=== PATIENT | female | born 1970 | race Caucasian/White ===

== ENCOUNTER 2021-03-28 18:26 | Inpatient (IN) | payer SELFPAY ==
[2021-03-28] MEDS ORDERED: THIAMINE 200 MG/2 ML INJ ONE (18:50)
[2021-03-28] MEDS ORDERED: NA CHLORIDE 0.9% 1,000 ML ONE (18:50)
[2021-03-28] MEDS ORDERED: MULTIVITAMINS 10 ML VIAL (INJ) IV ONE (18:51)
[2021-03-28] MEDS ORDERED: FOLIC ACID 5 MG/ML VIAL ONE (18:52)
[2021-03-28] MEDS ORDERED: DIAZEPAM 10 MG/2 ML INJ SYRINGE ONE (19:06)
[2021-03-28 19:16] LABS: Absolute Lymphocytes (CBC) 1.2 K/uL (0.7-4.9); Hematocrit 38.1 % (36.0-45.0); Lymphocytes % 32.5 % (15.3-44.8); MPV 10.1 fL (7.6-11.3); RBC Red Blood Cell Count 3.82 M/uL (3.86-4.86)
[2021-03-28 19:45] LABS: ALT/SGPT 98 U/L (12-78); Albumin 2.4 g/dL (3.4-5.0); Alkaline Phosphatase 237 U/L (45-117); BUN Blood Urea Nitrogen 3 mg/dL (7-18); Bicarbonate 26 mmol/L (21-32); Bilirubin Total 2.1 mg/dL (0.2-1.0); Glucose Level 94 mg/dL (74-106); Lipase 60 U/L (73-393); Protein, Total 6.3 g/dL (6.4-8.2); Sodium Level 137 mmol/L (136-145)
--- NOTE | 2021-03-28 19:52 | RAD REPORT ---
EXAM DESCRIPTION: Starla Single View03/28/2021 7:43 pm CLINICAL HISTORY: Alteration of consciousness COMPARISON: none FINDINGS: The lungs appear clear of acute infiltrate. The heart is normal size IMPRESSION: No acute abnormalities displayed
[2021-03-28 19:56] LABS: Urine Blood Trace-intact (Negative); Urine Glucose Negative (Negative); Urine Protein Negative (Negative)
[2021-03-28 19:57] LABS: AST/SGOT 321 U/L (15-37)
[2021-03-28 20:19] LABS: Anisocytosis 1+; Blood Morphology Comment NOTED (NOT SEEN); Platelet Estimate DECR; Polychromasia SLIGHT; White Blood Cell Scan OK (OK)
[2021-03-28 20:19] LABS: Protime INR 1.02
[2021-03-28 20:19] LABS: Troponin (Emerg Dept Use Only) 0.05 ng/mL (0.0-0.045)
[2021-03-28 20:23] LABS: Barbiturates NEGATIVE (NEGATIVE); Benzodiazepines NEGATIVE (NEGATIVE); Cocaine NEGATIVE (NEGATIVE); METHAMPHETAM NEGATIVE (NEGATIVE); Methadone NEGATIVE (NEGATIVE); Opiates NEGATIVE (NEGATIVE); Phencyclidine NEGATIVE (NEGATIVE); THC Cannibis NEGATIVE (NEGATIVE)
--- NOTE | 2021-03-28 20:59 | RAD REPORT ---
EXAM DESCRIPTION: CT - Head Brain Wo Cont - 03/28/2021 8:50 pm CLINICAL HISTORY: Alteration of awareness/confusion COMPARISON: None TECHNIQUE: Computed axial tomography of the head was obtained. IV contrast was not requested. All CT scans are performed using dose optimization technique as appropriate and may include automated exposure control or mA/KV adjustment according to patient size. FINDINGS: An intracranial bleed is not seen . The ventricles are mildly to moderately prominent. Cerebral atrophy is noted. No extra-axial fluid collection is noted. Fluid within the sinuses/ mastoids is not seen. IMPRESSION: Prominence of the ventricles probably related to white matter atrophy. Normal pressures hydrocephalus is probably less likely but should be correlated clinically.
--- NOTE | 2021-03-28 21:12 | RAD REPORT ---
EXAM DESCRIPTION: CT - Abdomen Pelvis W Contrast - 03/28/2021 8:57 pm CLINICAL HISTORY: Abdominal pain COMPARISON: none. TECHNIQUE: Computed axial tomography of the abdomen pelvis was obtained. 100 cc Isovue-300 was admin istered intravenously. Oral contrast was not requested which limits evaluation of bowel. All CT scans are performed using dose optimization technique as appropriate and may include automated exposure control or mA/KV adjustment according to patient size. FINDINGS: The liver is enlarged with fatty infiltration. The spleen, pancreas, adrenals and kidneys appear unremarkable There is no evidence of diverticulitis. An abnormal appendix is not seen. No adnexal mass. Agarwal catheter within the bladder. Prominence of the common bile duct. IMPRESSION: Hepatomegaly with fatty infiltration Prominence of the common bile duct probably is physiologic in this patient status post cholecystectom y. Pathology such as a stricture can also result in this appearance should be correlated clinically a nd with appropriate lab values
--- NOTE | 2021-03-28 21:41 | ER ---
Nurse's Notes [facility] Name: Rosa Cotto Age: 50 yrs Sex: Female : 1970 Arrival Date: 03/28/2021 Time: 18:28 Bed 26 Private MD: Diagnosis: Alcohol dependence with withdrawal;Elevated Troponin Level Presentation: 03/28 18:29 Chief complaint: EMS states: Toned out by Walterlakarthikeyan for alcohol withdrawal, pt drinks ll3 12 small bottles of wine per day, last drink last night on the way to rehab. Pt hallucinating in route, "trying to drink the pulse ox.". Coronavirus screen: Vaccine status: Patient reports receiving the 2nd dose of the covid vaccine. At this time, unable to obtain information related to travel outside the [place] At this time, the client does not indicate any symptoms associated with coronavirus-19. Ebola Screen: No symptoms or risks identified at this time. Initial Sepsis Screen: Does the patient meet any 2 criteria? No. Patient's initial sepsis screen is negative. Does the patient have a suspected source of infection? No. Patient's initial sepsis screen is negative. Risk Assessment: Do you want to hurt yourself or someone else? Patient reports no desire to harm self or others. Onset of symptoms was March 28, 2021. 18:29 Method Of Arrival: Ambulatory ll3 18:29 Acuity: MEDINA 2 ll3 Triage Assessment: 18:35 General: Appears in no apparent distress. comfortable, Behavior is calm, cooperative. ll3 Pain: Complains of pain in left upper quadrant Pain does not radiate. Pain currently is 6 out of 10 on a pain scale. Quality of pain is described as stabbing, Is continuous. Neuro: Level of Consciousness is awake, alert, obeys commands, Oriented to person, place, time, situation, Gait is unsteady, Speech is normal, Facial symmetry appears normal. Cardiovascular: Patient's skin is warm and dry. Respiratory: Airway is patent Trachea midline Respiratory effort is even, unlabored, Respiratory pattern is regular, symmetrical. GI: Abdomen is round non-distended, Abd is soft Abd is non tender in right upper quadrant, right lower quadrant and left lower quadrant Abdomen is tender to palpation in left upper quadrant Reports lower abdominal pain, diarrhea, nausea, vomiting. Derm: Skin is pink, warm \\T\\ dry. 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 - Social history:: Smoking status: Patient reports the use of cigarette tobacco products, smokes one-half pack cigarettes per day, Patient uses alcohol, on a daily basis. patient/guardian reports chronic longstanding heavy alcohol consumption. 12 small bottles of wine per day.. Screenin:46 Abuse screen: Denies threats or abuse. Nutritional screening: No deficits noted. ll3 Tuberculosis screening: No symptoms or risk factors identified. Fall Risk Fall in past 12 months (25 points). Gait- Weak (10 pts.). Assessment: 18:46 General: See triage.. ll3 19:55 Pain: Denies pain. Pain:. Neuro: Level of Consciousness is confused, Oriented to tw5 person, Speech is slurred. 20:40 Respiratory: Airway is patent Trachea midline Respiratory effort is even, unlabored. tw5 Psych: 20:48 Subjective: Hallucinations are visual. Objective: Speech is slurred. Interventions: tw5 Patient placed in hospital gown. Urine collected and sent for urine drug test. Safety Checks: Door is open. Patient uses 12 little bottles a day of wine, daily. Last use was " I had some this morning". Vital Signs: 18:29 BP 110 / 72; Pulse 98; Resp 21; Temp 98.8; Pulse Ox 100% on R/A; Weight 63.96 kg; ll3 Height 5 ft. 4 in. (162.56 cm); 19:03 BP 111 / 58; Pulse 103; Resp 19; Pulse Ox 100% ; jl7 19:55 BP 130 / 102; Pulse 88; Resp 22; Pulse Ox 100% on R/A; tw5 18:29 Body Mass Index 24.20 (63.96 kg, 162.56 cm) 3 ED Course: 18:28 Patient arrived in ED. 3 18:29 Loubet, Lynsea, RN is Primary Nurse. ll3 18:35 Triage completed. ll3 18:35 Arm band placed on. 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 Pulse ox on. NIBP on. jl7 18:35 Initial lab(s) drawn, by me, sent to lab. EKG done, by ED staff, reviewed by Jose Reynolds MD. Inserted saline lock: 20 gauge in right forearm, using aseptic technique. Blood collected. 18:46 Patient has correct armband on for positive identification. Placed in gown. Bed in low ll3 position. Call light in reach. 19:03 Elvin Subramanian MD is Attending Physician. mh7 19:08 Basic Metabolic Panel Sent. kd3 19:08 CBC with Diff Sent. kd3 19:08 Hepatic Function Sent. kd3 19:08 Lipase Sent. kd3 19:08 Basic Metabolic Panel Sent. kd3 19:42 Chest Single View XRAY In Process Unspecified. EDMS 19:52 AMMONIA Sent. tw5 19:52 UDS Sent. tw5 19:52 ETOH Level Sent. tw5 19:52 Acetaminophen Sent. tw5 19:54 Salicylate Sent. tw5 19:54 Troponin (emerg Dept Use Only) Sent. tw5 19:55 Noise minimized. Lights dimmed. Moved to private room. Warm blanket given. Verbal tw5 reassurance given. Assisted with bedpan. 19:55 Protime (+inr) Sent. tw5 19:55 Ptt, Activated Sent. tw5 19:55 Initial lab(s) drawn, by me, sent to lab. Urine collected: clean catch specimen, clear. tw5 19:56 Ammonia Sent. tw5 20:[address] tw5 20:49 CT Head Brain wo Cont In Process Unspecified. EDMS 21:39 Cass Bahena MD is Hospitalizing Provider. mh7 21:48 Assisted with bedpan. tw5 21:48 COVID swab sent to lab. tw5 21:49 COVID-19 SARS RT PCR (Document "Date of Onset" if Symptomatic) Sent. tw5 Administered Medications: 19:09 Drug: Banana Bag - (NS 0.9% 1000 ml, foLIC Acid 1 mg, Thiamine 100 mg, Multivitamin 1 kd3 amp) Route: IV; Rate: calculated rate; Site: right forearm; 19:32 Not Given (Physician Discretion): Valium (diazepam) 10 mg IVP once df1 20:38 Not Given (Physician Discretion): NS 0.9% 1000 ml IV at 1000 ml once df1 21:57 Drug: Nicotine Patch 21 mg/24 hr 1 patches {Note: applied to right upper arm.} Route: tw5 Transdermal; Site: affected area; Outcome: 21:40 Decision to Hospitalize by Provider. [facility] 23:23 Patient left the ED. mw Signatures: Dispatcher [employer] EDCT Hanna Dunaway RN RN Nesha Park RN RN jl7 Elvin Subramanian MD MD 7 Iesha Cee 5 Paulie De Oliveira RN RN ll3 Vita Driscoll RN RN kd3 Shahnaz Bradley df1
--- NOTE | 2021-03-28 21:42 | EDPHYS ---
Physician Documentation [facility] Name: Rosa Cotto Age: 50 yrs Sex: Female : 1970 Arrival Date: 03/28/2021 Time: 18:28 Bed 26 Private MD: ED Physician Elvin Subramanian HPI: 03/28 19:29 This 50 yrs old Female presents to ER via Ambulatory with complaints of Other, Alcohol mh7 Withdrawal. 19:29 The patient presents with confusion, Hallucinating. Onset: The symptoms/episode mh7 began/occurred today, at an unknown time. Possible causes: alcohol, has apparently stopped drinking. 19:29 Associated signs and symptoms: Pertinent positives: confusion, dizziness, mh7 lightheadedness, Pertinent negatives: abdominal pain, agitation, ataxia, blurred vision, chest pain, combativeness, diaphoresis, diarrhea, headache, nausea, numbness, palpitations, seizure, shortness of breath, tingling, vomiting, weakness. 19:29 Current symptoms: In the emergency department the patient's symptoms have improved, mh7 moderately. 19:29 EMS reported being called to scene due to patient having alcohol withdrawal. They mh7 report that she was hallucinating.. 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 - Social history:: Smoking status: Patient reports the use of cigarette tobacco products, smokes one-half pack cigarettes per day, Patient uses alcohol, on a daily basis. patient/guardian reports chronic longstanding heavy alcohol consumption. 12 small bottles of wine per day.. ROS: 19:29 Constitutional: Negative for fever, chills, and weight loss, Eyes: Negative for injury, mh7 pain, redness, and discharge, ENT: Negative for injury, pain, and discharge, Neck: Negative for injury, pain, and swelling, Cardiovascular: Negative for chest pain, palpitations, and edema, Respiratory: Negative for shortness of breath, cough, wheezing, and pleuritic chest pain, Abdomen/GI: Negative for abdominal pain, nausea, vomiting, diarrhea, and constipation, Back: Negative for injury and pain, : Negative for injury, bleeding, discharge, and swelling, MS/Extremity: Negative for injury and deformity, Skin: Negative for injury, rash, and discoloration, Neuro: Negative for headache, weakness, numbness, tingling, and seizure. 19:29 Allergy/Immunology: Negative for hives, rash, and allergies, Endocrine: Negative for neck swelling, polydipsia, polyuria, polyphagia, and marked weight changes, Hematologic/Lymphatic: Negative for swollen nodes, abnormal bleeding, and unusual bruising. 19:29 Psych: Negative for anxiety, depression, suicide gesture, suicidal ideation. Exam: 19:29 Head/Face: Normocephalic, atraumatic. Eyes: Pupils equal round and reactive to light, mh7 extra-ocular motions intact. Lids and lashes normal. Conjunctiva and sclera are non-icteric and not injected. Cornea within normal limits. Periorbital areas with no swelling, redness, or edema. Neck: Trachea midline, no thyromegaly or masses palpated, and no cervical lymphadenopathy. Supple, full range of motion without nuchal rigidity, or vertebral point tenderness. No Meningismus. Chest/axilla: Normal chest wall appearance and motion. Nontender with no deformity. No lesions are appreciated. Cardiovascular: Regular rate and rhythm with a normal S1 and S2. No gallops, murmurs, or rubs. Normal PMI, no JVD. No pulse deficits. Respiratory: Lungs have equal breath sounds bilaterally, clear to auscultation and percussion. No rales, rhonchi or wheezes noted. No increased work of breathing, no retractions or nasal flaring. Abdomen/GI: Soft, non-tender, with normal bowel sounds. No distension or tympany. No guarding or rebound. No evidence of tenderness throughout. Back: No spinal tenderness. No costovertebral tenderness. Full range of motion. Skin: Warm, dry with normal turgor. Normal color with no rashes, no lesions, and no evidence of cellulitis. MS/ Extremity: Pulses equal, no cyanosis. Neurovascular intact. Full, normal range of motion. 19:29 Constitutional: The patient appears in no acute distress, alert, awake. 19:29 Neuro: Orientation: to person, time, situation, Not oriented to place, She thinks she mh7 is at another hospital. Mentation: is normal, Memory: is normal, Cranial nerves: grossly normal, Cerebellar function: is grossly normal, Motor: is normal, Sensation: is normal, Gait: not tested. Deep tendon reflexes are normal, Babinski testing is normal, seizure activity, is not displayed by the patient, Abnormal movements: there are no abnormal movements. 19:29 Psych: Behavior/mood is cooperative, Affect is calm, Oriented to person, time, Not mh7 oriented to place, Patient has no thoughts/intents to harm self or others. Judgement / Insight is normal. Memory is normal. Delusions/hallucinations are not present. Vital Signs: 18:29 BP 110 / 72; Pulse 98; Resp 21; Temp 98.8; Pulse Ox 100% on R/A; Weight 63.96 kg; ll3 Height 5 ft. 4 in. (162.56 cm); 19:03 BP 111 / 58; Pulse 103; Resp 19; Pulse Ox 100% ; jl7 19:55 BP 130 / 102; Pulse 88; Resp 22; Pulse Ox 100% on R/A; tw5 18:29 Body Mass Index 24.20 (63.96 kg, 162.56 cm) ll3 MDM: 21:38 Differential Diagnosis: CVA, electrolyte abnormality, alcohol intoxication, mh7 hypoglycemia, intracranial bleed, overdose, pneumonia, sepsis, UTI, volume depletion, Alcohol withdrawal, hepatic encephalopathy. Data reviewed: vital signs, nurses notes, EMS record, lab test result(s), cardiac enzymes, CBC, electrolytes, urinalysis, urine drug screen, EKG, radiologic studies, CT scan, plain films. Data interpreted: Pulse oximetry: on room air is 100 %. Interpretation: normal. Counseling: I had a detailed discussion with the patient and/or guardian regarding: the historical points, exam findings, and any diagnostic results supporting the discharge/admit diagnosis, the presence of at least one elevated blood pressure reading (>120/80) during this emergency department visit, lab results, radiology results, the need for further work-up and treatment in the hospital. Response to treatment: the patient's symptoms have markedly improved after treatment. 21:40 Patient medically screened. [facility] 03/28 18:43 Order name: Basic Metabolic Panel ma2 03/28 18:43 Order name: CBC with Diff; Complete Time: 20:37 [facility] 03/28 18:43 Order name: Hepatic Function; Complete Time: 20:07 [facility] 03/28 18:43 Order name: Lipase; Complete Time: 20:07 [facility] 03/28 18:44 Order name: Basic Metabolic Panel; Complete Time: 20:07 [facility] 03/28 19:15 Order name: ETOH Level; Complete Time: 20:07 [facility] 03/28 19:15 Order name: UDS; Complete Time: 20:37 [facility] 03/28 19:15 Order name: Acetaminophen; Complete Time: 20:37 [facility] 03/28 19:15 Order name: Salicylate; Complete Time: 20:37 [facility] 03/28 19:15 Order name: Troponin (emerg Dept Use Only); Complete Time: 20:37 [facility] 03/28 19:15 Order name: Protime (+inr); Complete Time: 20:37 [facility] 03/28 19:15 Order name: Ptt, Activated; Complete Time: 20:37 [facility] 03/28 19:40 Order name: AMMONIA [facility] 03/28 19:15 Order name: EKG; Complete Time: 19:16 [facility] 03/28 19:15 Order name: Chest Single View XRAY; Complete Time: 19:53 [facility] 03/28 19:15 Order name: CT Head Brain wo Cont; Complete Time: 21:25 [facility] 03/28 19:41 Order name: Ammonia [facility] 03/28 19:56 Order name: CT Abd/Pelvis - IV Contrast Only [facility] 03/28 19:56 Order name: Urine Dipstick-Ancillary; Complete Time: 20:07 [facility] 03/28 19:57 Order name: Urine --Ancillary (enter results); Complete Time: 20:37 [facility] 03/28 20:19 Order name: CBC Smear Scan; Complete Time: 20:37 [facility] 03/28 21:13 Order name: CT; Complete Time: 21:25 [facility] 03/28 21:37 Order name: COVID-19 SARS RT PCR (Document "Date of Onset" if Symptomatic) 03/28 22:47 Order name: SARS-COV-2 RT PCR [facility] 03/28 18:43 Order name: IV Saline Lock; Complete Time: 19:01 [facility] 03/28 18:43 Order name: Labs collected and sent; Complete Time: 19: [facility] 03/28 19:15 Order name: Urine Dipstick-Ancillary (obtain specimen); Complete Time: 19:52 [facility] 03/28 19:15 Order name: Urine Test (obtain specimen); Complete Time: 19:52 [facility] 03/28 19:15 Order name: EKG - Nurse/Tech; Complete Time: 19:52 [facility] Administered Medications: 19:09 Drug: Banana Bag - (NS 0.9% 1000 ml, foLIC Acid 1 mg, Thiamine 100 mg, Multivitamin 1 kd3 amp) Route: IV; Rate: calculated rate; Site: right forearm; 19:32 Not Given (Physician Discretion): Valium (diazepam) 10 mg IVP once df1 20:38 Not Given (Physician Discretion): NS 0.9% 1000 ml IV at 1000 ml once df1 21:57 Drug: Nicotine Patch 21 mg/24 hr 1 patches {Note: applied to right upper arm.} Route: tw5 Transdermal; Site: affected area; Disposition Summary: 03/28/21 21:40 Hospitalization Ordered Hospitalization Status: Inpatient Admission [facility] Provider: Cass Bahena Condition: Stable [facility] Problem: new [facility] Symptoms: have improved [facility] Bed/Room Type: Standard [facility] Location: Intensive Care Unit(03/28/21 23:05) Room Assignment: ER - 9(03/28/21 23:05) Diagnosis - Alcohol dependence with withdrawal [facility] - Elevated Troponin Level [facility] Forms: - Medication Reconciliation Form 7 - SBAR form [facility] Signatures: Dispatcher [employer] EDMA Hanna Dunaway RN RN mw Jose Reynolds MD MD ma2 Elvin Subramanian MD MD 7 Agustín Marin PA PA ej Wood, Tiffany tw5 Paulie De Oliveira RN RN 3 Vita Driscoll RN RN kd3 Shahnaz Bradley df1 Corrections: (The following items were deleted from the chart) 19:52 19:15 ETHANOL+C.LAB.BRZ ordered. EDMA EDMA 23:05 21:40 Telemetry/MedSurg (Inpatient) [facility] 23:05 21:40 mh7 mw
[2021-03-28] MEDS ORDERED: NICOTINE 21 MG/PAT TD ONE (21:51)
[2021-03-28 23:31] VITALS: BMI 31.7
--- NOTE | 2021-03-28 23:42 | P.HP ---
Certification for Inpatient Patient admitted to: Inpatient With expected LOS: <2 Midnights Patient will require the following post-hospital care: None Practitioner: I am a practitioner with admitting privileges, knowledge of patient current condition, hospital course, and medical plan of care. Services: Services provided to patient in accordance with Admission requirements found in Title 42 Section 412.3 of the Code of Federal Regulations Patient History Date of Service: 03/28/21 Reason for admission: alcohol withdrawal History of Present Illness: Ms. Cotto is a 50 yo F with alcohol and tobacco use disorder who presents with one day of dizziness, weakness in her legs, vision changes, and diffuse abdominal pain. She also reports nausea and vomiting. Twelve days ago, she was admitted to [facility] for pancreatitis. She says her abdominal pain feels similar to that episode. She says she has had a poor appetite as well, and has only been tolerating liquids. Her last alcoholic drink was this morning. She says she drinks a four pack of wine daily. She had an episode of alcohol withdrawal in 2019. At bedside, patient is able to answer all questions directly and correctly although she does seem drowsy. Per nursing staff, she believes she is at [place], does not remember the ambulance drive, thinks that her pulse ox is a drink cap, and repeatedly tries to climb out of bed. Plt 83 K 3.0 Tbili 2.1 Dbili 1.0 AST 321 ALT 98 alk phos 237 trop 0.05 UA positive for blood and leukocyte esterase. MELD score of 12. Alcohol and ammonia negative. CT HEAD IMPRESSION: Prominence of the ventricles probably related to white matter atrophy. Normal pressures hydrocephalus is probably less likely but should be correlated clinically. CTAP IMPRESSION: Hepatomegaly with fatty infiltration Prominence of the common bile duct probably is physiologic in this patient status post cholecystectomy. Pathology such as a stricture can also result in this appearance should be correlated clinically and with appropriate lab values - Past Medical/Surgical History Diabetic: No -: history of pancreatitis -: alcohol withdrawal 2019 -: alcohol use disorder -: tobacco use disorder -: joycelyn -: gastric bypass Psychosocial/ Personal History: has a daughter - Social History Smoking Status: Heavy Tobacco smoker (>10 cigarettes/day) Alcohol use: Yes CD- Drugs: No Caffeine use: No Place of Residence: Home Review of Systems 10-point ROS is otherwise unremarkable General: Weakness, As per HPI Eyes: Unremarkable ENT: Unremarkable Respiratory: Unremarkable Cardiovascular: Unremarkable Gastrointestinal: Nausea, Vomiting, Abdominal Pain Genitourinary: Unremarkable Musculoskeletal: Unremarkable Integumentary: Unremarkable Neurological: Weakness, Incoordination, Confusion, As per HPI Lymphatics: Unremarkable Physical Examination - Vital Signs Temperature: 98.8 F Blood Pressure: 110/72 Pulse: 98 Respirations: 21 - Physical Exam General: Alert, In no apparent distress, Cooperative HEENT: Atraumatic, PERRLA, Mucous membr. moist/pink, EOMI, Sclerae nonicteric Neck: Supple, 2+ carotid pulse no bruit, No LAD, Without JVD or thyroid abnormality Respiratory: Diminished Cardiovascular: Regular rate/rhythm, Normal S1 S2 Gastrointestinal: Normal bowel sounds, Tenderness Musculoskeletal: No tenderness Integumentary: No rashes Neurological: Normal strength at 5/5 x4 extr, Normal tone, Sensation intact, Abnormal speech, Abnormal affect Lymphatics: No axilla or inguinal lymphadenopathy - Studies Laboratory Data (last 24 hrs) 03/28/21 19:45: PT 11.7, INR 1.02, APTT 29.6 03/28/21 18:57: WBC 3.60 L, Hgb 12.8, Hct 38.1, Plt Count 83 L 03/28/21 18:57: Sodium 137, Potassium 3.0 L, BUN 3 L, Creatinine 0.65, Glucose 94, Total Bilirubin 2.1 H, AST 321 H*, ALT 98 H, Alkaline Phosphatase 237 H, Lipase 60 L Assessment and Plan - Problems (Diagnosis) (1) Alcohol use disorder Current Visit: Yes Status: Chronic (2) Tobacco use disorder Current Visit: Yes Status: Chronic (3) Elevated troponin Current Visit: Yes Status: Acute (4) Thrombocytopenia Current Visit: Yes Status: Chronic (5) Cirrhosis Current Visit: Yes Status: Chronic Qualifiers: Hepatic cirrhosis type: alcoholic cirrhosis Ascites presence: without ascites Qualified Code(s): K70.30 - Alcoholic cirrhosis of liver without ascites (6) Weakness Current Visit: Yes Status: Acute - Plan neurology consulted, psych available for consult on 04/03 on tele, trend troponins, will consider cardiology consult CIWA protocol, neurological assessments q6hr, librium and ativan PRN amylase & lipase pending, B12, thiamine, folate levels pending continue IVF hydration continue to monitor liver function and platelets potassium replacement protocol UA pending, continue IV ceftriaxone nicotine patch DVT ppx Discharge Plan: Home Plan to discharge in: 48 Hours - Advance Directives Does patient have a Living Will: No Does patient have a Durable POA for Healthcare: No - Code Status/Comfort Care Code Status Assessed: Yes (full code ) Critical Care: No Time Spent Managing Pts Care (In Minutes): 70
[2021-03-29] MEDS: KCL 20 MEQ/100 mL IVPB 20 MEQ/100 ML BAG IV SCH (01:06)
[2021-03-29] MEDS ORDERED: ONDANSETRON 4 MG/2 ML VIAL IV PRN (01:06)
[2021-03-29] MEDS: NA CHLORIDE 0.9% 1,000 ML IV SCH ×3 (01:06→21:06)
[2021-03-29] MEDS: CEFTRIAXONE 1,000 MG in NA CHLORIDE 0.9% 50 ML IVPB SCH ×2 (01:06→07:43)
[2021-03-29] MEDS ORDERED: ALBUTEROL 2.5 MG/3 ML NEB SOL NEB PRN (01:06)
[2021-03-29] MEDS ORDERED: chlordiazePOXIDE HCl 5 MG CAP PO PRN (01:06)
[2021-03-29] MEDS ORDERED: ACETAMINOPHEN 500 MG TAB PO PRN (01:06)
[2021-03-29] MEDS ORDERED: KCL 20 MEQ/100 mL IVPB 0 MEQ/0 ML BAG IV ONE (02:23)
[2021-03-29 02:24] LABS: Amylase 26 U/L (25-115); Folic Acid, (Folate) > 20.0 ng/mL (3.1-17.5); Lipase 61 U/L (73-393); Troponin I < 0.02 ng/mL (0.0-0.045)
[2021-03-29] MEDS ORDERED: NA CHLORIDE 0.9% 1,000 ML ONE ×2 (02:25→14:26)
[2021-03-29] MEDS ORDERED: KCL 20 MEQ/100 mL IVPB 20 MEQ/100 ML BAG IV ONE ×2 (05:33→07:41)
[2021-03-29] MEDS ORDERED: CEFTRIAXONE 1000 MG/VIAL ONE ×2 (05:40→07:35)
[2021-03-29] MEDS ORDERED: NA CHLORIDE 0.9% 100 ML ONE (05:41)
[2021-03-29 05:46] LABS: Absolute Lymphocytes (CBC) 1.1 K/uL (0.7-4.9); Basophils % 0.5 % (0-1.3); Hematocrit 35.7 % (36.0-45.0); Lymphocytes % 35.5 % (15.3-44.8); MPV 10.4 fL (7.6-11.3); RBC Red Blood Cell Count 3.53 M/uL (3.86-4.86)
[2021-03-29 06:10] LABS: ALT/SGPT 82 U/L (12-78); AST/SGOT 269 U/L (15-37); Albumin 2.1 g/dL (3.4-5.0); Alkaline Phosphatase 200 U/L (45-117); BUN Blood Urea Nitrogen 3 mg/dL (7-18); Bicarbonate 23 mmol/L (21-32); Bilirubin Total 2.2 mg/dL (0.2-1.0); Glucose Level 71 mg/dL (74-106); HDL Cholesterol 30 mg/dL (40-60); LDL Cholesterol, Calculated 98 (<130); Magnesium 1.8 mg/dL (1.8-2.4); Phosphorus 3.1 mg/dL (2.5-4.9); Protein, Total 5.4 g/dL (6.4-8.2); Sodium Level 142 mmol/L (136-145); Troponin I < 0.02 ng/mL (0.0-0.045)
[2021-03-29 06:13] LABS: Potassium 2.9 mmol/L (3.5-5.1)
[2021-03-29 06:32] LABS: Protime INR 1.02
[2021-03-29] MEDS ORDERED: NICOTINE 21 MG/PAT TD ONE (07:35)
[2021-03-29] MEDS ORDERED: MAGNESIUM SULFATE 1 gm IVPB 1 GM/100 ML BAG IV ONE ×2 (07:35→08:00)
[2021-03-29] MEDS ORDERED: ONDANSETRON 4 MG/2 ML VIAL ONE (07:35)
[2021-03-29] MEDS ORDERED: NA CHLORIDE 0.9% 50 ML ONE (07:35)
[2021-03-29] MEDS: NICOTINE 21 MG/PAT TD SCH (07:43)
[2021-03-29] MEDS ORDERED: LORazepam 2 MG/ML VIAL ONE (10:10)
[2021-03-29] MEDS: LORazepam 2 MG/ML VIAL IV PRN ×2 (10:11→22:02)
--- NOTE | 2021-03-29 13:03 | P.PN ---
Subjective Date of Service: 03/29/21 Chief Complaint: alcohol withdrawal She is doing well this monring laying in bed, looks comfortable, no CP or SOB, looks calm Physical Examination - Vital Signs Temperature: 98.0 F Blood Pressure: 122/82 Pulse: 76 Respirations: 16 Pulse Ox (%): 100 - Studies Laboratory Data (last 24 hrs) 03/28/21 19:45: PT 11.7, INR 1.02, APTT 29.6 03/28/21 18:57: WBC 3.60 L, Hgb 12.8, Hct 38.1, Plt Count 83 L 03/28/21 18:57: Sodium 137, Potassium 3.0 L, BUN 3 L, Creatinine 0.65, Glucose 94, Total Bilirubin 2.1 H, AST 321 H*, ALT 98 H, Alkaline Phosphatase 237 H, Lipase 60 L
--- NOTE | 2021-03-29 13:20 | P.PN ---
Subjective Date of Service: 03/29/21 Chief Complaint: alcohol withdrawal She is doing well this monring laying in bed, looks comfortable, no CP or SOB, looks calm Physical Examination - Vital Signs Temperature: 98.0 F Blood Pressure: 122/82 Pulse: 76 Respirations: 16 Pulse Ox (%): 100 - Studies Laboratory Data (last 24 hrs) 03/28/21 19:45: PT 11.7, INR 1.02, APTT 29.6 03/28/21 18:57: WBC 3.60 L, Hgb 12.8, Hct 38.1, Plt Count 83 L 03/28/21 18:57: Sodium 137, Potassium 3.0 L, BUN 3 L, Creatinine 0.65, Glucose 94, Total Bilirubin 2.1 H, AST 321 H*, ALT 98 H, Alkaline Phosphatase 237 H, Lipase 60 L Assessment & Plan Physician Review Additional Text: Physical Exam General: Alert, In no apparent distress, Cooperative HEENT: Atraumatic, PERRLA, Mucous membr. moist/pink, EOMI, Sclerae nonicteric Neck: Supple, 2+ carotid pulse no bruit, No LAD, Without JVD or thyroid abnormality Respiratory: Diminished Cardiovascular: Regular rate/rhythm, Normal S1 S2 Gastrointestinal: Normal bowel sounds, Tenderness Musculoskeletal: No tenderness Integumentary: No rashes Neurological: Normal strength at 5/5 x4 extr, Normal tone, Sensation intact, Abnormal speech, Abnormal affect Lymphatics: No axilla or inguinal lymphadenopathy Assessment and Plan (1) Alcohol use disorder last drink yesterday morning, level not detectable , on Thiamine and MVI (2) Tobacco use disorder advised to quit (3) Elevated troponin back to nl on repeat, no furhter work up indicated (4) Thrombocytopenia improving in the 90s today (5) Cirrhosis fatty liver on imagaing , with elevated AST and ALT, need GI appt, followed up with PCP as outpt, (6) Hypokalemia (&) agitation replace on K protocol (7) Agitation neurology consult pending (8) UTI -UA neg, will DC ceftriaxone, asympatomtic , no Cx done DC plan will depend neuro recommendation
[2021-03-29 14:46] LABS: BUN Blood Urea Nitrogen 3 mg/dL (7-18); Bicarbonate 24 mmol/L (21-32); Glucose Level 72 mg/dL (74-106); Sodium Level 144 mmol/L (136-145)
[2021-03-29 15:20] LABS: Potassium 2.9 mmol/L (3.5-5.1)
--- NOTE | 2021-03-29 19:11 | CON ---
Reason For Consultation: Consultation called because of alcohol withdrawal. History Of Present Illness: Ms. Cotto is a -wzcl-iph right-handed patient with a history of long-standing alcohol abuse up to 16 8-ounce bottles of wine daily for around 20 years. S he was recently admitted about 12 days ago to the hospital with pancreatitis related to alcohol use, but this admission was a transfer from [facility] to [facility] as she was there for alcohol w ithdrawal. She apparently had abdominal pain, nausea, and vomiting, but was hallucinating, seeing th ings not present, hearing things not present and was brought into [facility]. In the hospit al, she was observed to be trying to drink from her pulse ox as though it was alcohol and when the pa fiorella came to [facility], she had no recollection of how she got to the hospital. Her brain imaging showed a significant ventricular dilatation related to small-vessel disease more likely and normal-pr essure hydrocephalus although that was raised by the radiologist. She had a fatty liver with hepatom egaly. Our blood work showed elevated ALT of 98, AST elevated at 321, alkaline phosphate elevated at 37, and urine analysis was positive for blood and esterase positive with leukocytes. She did not magallanes ve alcohol toxicity as alcohol test was negative at that time and ammonia negative. She had not had a drink in a couple of days since previous due to the current admission. Past Medical History: As noted alcohol and tobacco abuse, pancreatitis, and alcohol withdrawal. Past Surgical History: Gastric bypass. Social History: As indicated around a pack of cigarettes daily, 16 8-ounce wine bottles daily. She is lives independently and has a daughter. Family History: Not contributory. Medications: No regular medications. Now, she is receiving a Librium taper as a nicotine patch, Zof ran, IV hydration, folic acid along with thiamine and multivitamins, and Tylenol for headache. Review of Systems: As noted. She has had nausea, vomiting, abdominal pain, diffuse weakness in addition to headache, magallanes llucinations, and delusions. Physical Examination: Vital Signs: Blood pressure 119/81, pulse 76, respiratory rate 16, temperature 98, oxygen saturation 100% on room air. Weight 185 pounds, height 5 feet 4 inches, and BMI 31.8. General: Ms. Cotto is resting comfortably in the emergency room bed. She is in no significant distre ss. HEENT: She is normocephalic, atraumatic. Her sclerae are anicteric. Oropharynx pink and moist. Neck: Supple. Chest: Clear. Heart: Regular. Extremities: Show no significant clubbing, cyanosis, or edema. Neurologic: She is alert and oriented to situation, place, and person. She has no expressive or rec eptive aphasias. Cranial nerves 2 through 12 intact. Motor is intact. Strength with normal tone pr oximally and distally in the upper and lower extremities and sensation intact in upper and lower extr emities with normal response to light touch. Temperature in arms and legs. Coordination intact in u pper and lower extremities. She will be ambulated with therapy prior to her discharge. No prior his tory of any gait abnormalities. Laboratory Studies: Complete blood count with differential shows a low white blood cell 3.2, hemoglo bin 11.8, and platelets of 97. INR 1.02. Her potassium is very low at 2.9, creatinine 0.45, BUN low at 3, glucose 72, magnesium 2.2, B12 1666, lipase 61, and folate greater than 20. TSH 1.33. Urinal ysis shows trace blood, 1+ esterase, and urine toxicology screen negative. COVID-19 test is negative . Assessment: Ms. Cotto is a -agpb-lxd patient with alcohol withdrawal. She is likely throug h the alcohol withdrawal phase as blood pressure, pulse, and heart rate are now stable. She does hav e the thiamine, folic acid, multivitamin, and she is otherwise doing well. However, she does have a significant risk of additional issues with alcohol, drugs, and tobacco abuse. Plan: Once discharged, she should be re-admitted to her detoxification program, folic acid 2 mg ashlyn y, thiamine 100 mg daily, multivitamin daily, and stop smoking and drinking. AMARILIS/FABIEN Voice ID: [id number] Report ID: [id number]
[2021-03-30] MEDS: KCL 20 MEQ/100 mL IVPB 20 MEQ/100 ML BAG IV SCH ×4 (01:06→15:33)
[2021-03-30] MEDS: NA CHLORIDE 0.9% 1,000 ML IV SCH ×3 (01:24→11:04)
[2021-03-30] MEDS ORDERED: KCL 20 MEQ/100 mL IVPB 20 MEQ/100 ML BAG IV SCH (02:00)
[2021-03-30 06:58] LABS: Urine Appearance Clear (Clear); Urine Bilirubin Negative (Negative); Urine Blood Negative (Negative); Urine Color Yellow (Yellow); Urine Glucose Negative (Negative); Urine Microscopic Reflex NO UMIC; Urine Protein Negative (Negative); Urine Urobilinogen 0.2 mg/dL (0.2-1.0)
[2021-03-30 07:27] LABS: BUN Blood Urea Nitrogen 2 mg/dL (7-18); Bicarbonate 26 mmol/L (21-32); Glucose Level 89 mg/dL (74-106); Sodium Level 141 mmol/L (136-145)
[2021-03-30 07:28] LABS: Potassium 2.8 mmol/L (3.5-5.1)
[2021-03-30] MEDS: LORazepam 2 MG/ML VIAL IV PRN (08:31)
[2021-03-30] MEDS: NICOTINE 21 MG/PAT TD SCH (08:32)
--- NOTE | 2021-03-30 12:19 | P.DS ---
Admission Date: 03/28/21 Discharge Date: 03/30/21 Disposition: TRANSFER TO INPATIENT REHAB Discharge Condition: GOOD Reason for Admission: alcohol withdrawal Procedures: CT HEAD IMPRESSION: Prominence of the ventricles probably related to white matter atrophy. Normal pressures hydrocephalus is probably less likely but should be correlated clinically. CTAP IMPRESSION: Hepatomegaly with fatty infiltration Prominence of the common bile duct probably is physiologic in this patient status post cholecystectomy. Pathology such as a stricture can also result in this appearance should be correlated clinically and with appropriate lab values Brief History of Present Illness: 50 yo F with alcohol and tobacco use disorder who presents with one day of dizziness, weakness in her legs, vision changes, and diffuse abdominal pain. She also reports nausea and vomiting. Twelve days ago, she was admitted to [facility] for pancreatitis. She says her abdominal pain feels similar to that episode. She says she has had a poor appetite as well, and has only been tolerating liquids. Her last alcoholic drink was this morning. She says she drinks a four pack of wine daily. She had an episode of alcohol withdrawal in 2019. At bedside, patient is able to answer all questions directly and correctly although she does seem drowsy. Per nursing staff, she believes she is at [facility], does not remember the ambulance drive, thinks that her pulse ox is a drink cap, and repeatedly tries to climb out of bed. Plt 83 K 3.0 Tbili 2.1 Dbili 1.0 AST 321 ALT 98 alk phos 237 trop 0.05 UA positive for blood and leukocyte esterase. MELD score of 12. Alcohol and ammonia negative. 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 moist/pink, EOMI, Sclerae nonicteric Neck: Supple, 2+ carotid pulse no bruit, No LAD, Without JVD or thyroid abnormality Respiratory: Diminished Cardiovascular: Regular rate/rhythm, Normal S1 S2 Gastrointestinal: Normal bowel sounds, Tenderness Musculoskeletal: No tenderness Integumentary: No rashes Neurological: Normal strength at 5/5 x4 extr, Normal tone, Sensation intact, Abnormal speech, Abnormal affect Lymphatics: No axilla or inguinal lymphadenopathy Vital Signs/Physical Exam: Temp Pulse Resp BP Pulse Ox 96.9 F 72 18 129/78 98 03/30/21 08:00 03/30/21 08:00 03/30/21 08:00 03/30/21 08:00 03/30/21 08:00 Laboratory Data at Discharge: WBC 3.20 K/uL (4.3-10.9) L 03/29/21 04:53 Hgb 11.8 g/dL (12.0-15.0) L 03/29/21 04:53 Hct 35.7 % (36.0-45.0) L 03/29/21 04:53 Plt Count 97 K/uL (152-406) L 03/29/21 04:53 PT 11.7 SECONDS (9.5-12.5) 03/29/21 04:53 INR 1.02 03/29/21 04:53 APTT 29.6 SECONDS (24.3-36.9) 03/28/21 19:45 Sodium 141 mmol/L (136-145) 03/30/21 06:48 Potassium 2.8 mmol/L (3.5-5.1) L* 03/30/21 06:48 BUN 2 mg/dL (7-18) L 03/30/21 06:48 Creatinine 0.34 mg/dL (0.55-1.3) L 03/30/21 06:48 Glucose 89 mg/dL (74-106) 03/30/21 06:48 Phosphorus 3.1 mg/dL (2.5-4.9) 03/29/21 04:53 Magnesium 1.8 mg/dL (1.8-2.4) 03/29/21 04:53 Total Bilirubin 2.2 mg/dL (0.2-1.0) H 03/29/21 04:53 AST 269 U/L (15-37) H 03/29/21 04:53 ALT 82 U/L (12-78) H 03/29/21 04:53 Alkaline Phosphatase 200 U/L (45-117) H 03/29/21 04:53 Troponin I < 0.02 ng/mL (0.0-0.045) 03/29/21 04:53 Triglycerides 78 mg/dL (<150) 03/29/21 04:53 Cholesterol 144 mg/dL (<200) 03/29/21 04:53 HDL Cholesterol 30 mg/dL (40-60) L 03/29/21 04:53 Cholesterol/HDL Ratio 4.80 03/29/21 04:53 Amylase 26 U/L (25-115) 03/29/21 01:00 Lipase 61 U/L (73-393) L 03/29/21 01:00 Home Medications: Multivitamin [Multiple Vitamins] 1 each PO 30 MIN BEFORE HS 30 Days tablet 03/30/21 RX: Thiamine HCl [Vitamin B-1*] 100 mg PO DAILY 30 Days #30 tablet 03/30/21 New Medications: Multivitamin [Multiple Vitamins] 1 each PO 30 MIN BEFORE HS 30 Days tablet RX: Thiamine HCl [Vitamin B-1*] 100 mg PO DAILY 30 Days #30 tablet Physician Discharge Instructions: follow up with PCP in one week, need follow up wtih GI as well Diet: Regular Activity: Ad rizwana Followup: NONE,NONE [Primary Care Provider] -
[2021-03-30 16:49] VITALS: O2SAT 99
[2021-03-30 22:07] VITALS: BP 101/65; TEMP 97
== END 2021-03-30 21:55 | DRG 897 ==
LOC: ER 18:26 → ERHOLD 20:53 → 2ND 03-29 19:13
PROVIDERS: ADMIT Internal Medicine; ATTEND Internal Medicine
DX: F10.232 Alcohol dependence with withdrawal with perceptual disturbance (principal); D69.6 Thrombocytopenia, unspecified; K70.30 Alcoholic cirrhosis of liver without ascites; Z98.84 Bariatric surgery status; R77.8 Other specified abnormalities of plasma proteins; E87.6 Hypokalemia; Z20.822 Contact with and (suspected) exposure to COVID-19; Z88.2 Allergy status to sulfonamides; Z88.0 Allergy status to penicillin
CPT/HCPCS: 36415; 70450; 71045; 74177; 80048; 80053; 80061; 80076; 80307; 80320; 80329; 81003; 81025; 82140; 82150; 82607; 82746; 83690; 83735; 84100; 84132; 84425; 84439; 84443; 84484; 85025; 85610; 85730; 94760; 96374; 99285; J2405; J3360; J3411; J3475; J3480; J7030; Q9967; U0003